=== PATIENT | female | born 1980 | race African-American/Black ===

== ENCOUNTER 2021-12-31 05:11 | Emergency (ER) | payer MEDICAID, OTHER ==
[~2021-12-31] VITALS: Ht 165.1 cm; Wt 57.6 kg
[2021-12-31] MEDS ORDERED: diphenhdrAMINE HCL 50 MG/1 ML VL IV ONE (06:30)
[2021-12-31] MEDS ORDERED: SODIUM CHLORIDE 0.9% 1,000 ML IV ONE (06:30)
[2021-12-31] MEDS ORDERED: methylPREDNISolone SOD SUCC 125 MG/2 ML VL IV ONE (06:30)
[2021-12-31] MEDS ORDERED: PRED20TA2 PO (07:02)
[2021-12-31] MEDS ORDERED: CARB4TAB8 PO (07:02)
[2021-12-31 08:28] VITALS: BP 116/74
== END 2021-12-31 09:25 | disposition home or self-care (01) ==
LOC: ER 05:11
DX: T78.40XA Allergy, unspecified, initial encounter (principal); X58.XXXA Exposure to other specified factors, initial encounter
CPT/HCPCS: 96361; 96374; 96375; 99284; J1200; J2930; J7030